=== PATIENT | female | born 2005 | race Two or more races ===

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

== ENCOUNTER 2025-03-14 22:34 | Emergency (ER) | payer BC, OTHER ==
[~2025-03-14] VITALS: Ht 162.6 cm; Wt 52.6 kg
[2025-03-14] MEDS ORDERED: AMOX-430 PO (23:43)
[2025-03-14] MEDS ORDERED: AMOX/CLAVULANATE 875 MG TABLET ONE (23:45)
[2025-03-14] MEDS: AMOX/CLAVULANATE 875 MG TABLET PO ONE (23:47)
[2025-03-15 00:17] VITALS: BP 119/64; TEMP 98.5; O2SAT 96
== END 2025-03-15 00:18 | disposition home or self-care (01) ==
LOC: ER 22:41
DX: S51.832A Puncture wound without foreign body of left forearm, initial encounter (principal); Z60.2 Problems related to living alone; W55.01XA Bitten by cat, initial encounter; Y93.89 Activity, other specified; Y92.099 Unspecified place in other non-institutional residence as the place of occurrence of the external cause; Y99.8 Other external cause status